=== PATIENT | male | born 1985 | race Caucasian/White ===

== ENCOUNTER 2016-09-11 11:42 | Emergency (ER) | payer OTHER ==
[~2016-09-11] VITALS: Ht 180.3 cm; Wt 78.0 kg
[~2016-09-11 11:42] MED LIST: MOTRIN100 MG PO; ULTRAM50 MG PO
[2016-09-11] MEDS ORDERED: PERCOCET 5/31 TABLET PO (15:01)
[2016-09-11 15:14] LABS: ADD MIUA? NO; BILIRUBIN NEGATIVE; BLOOD NEGATIVE; COLOR YELLOW ((YELLOW)); GLUCOSE (STRIP) NEGATIVE; KETONES NEGATIVE; LEUKOCYTES NEGATIVE; NITRITE NEGATIVE; PROTEIN (STRIP) NEGATIVE; SPECIFIC GRAVITY 1.015 (1.000-1.030); UCUL ADDED? NO
[2016-09-11 15:23] VITALS: BP 105/40
[2016-09-12 12:55] LABS: CHLAMYDIA TRACHOMATIS NEGATIVE; NEISSERIA GONORRHOEAE NEGATIVE
== END 2016-09-11 15:32 | disposition home or self-care (01) ==
LOC: EME 11:42
PROVIDERS: Physician Assistant Medical
DX: N50.89 Other specified disorders of the male genital organs (principal); N43.3 Hydrocele, unspecified; F17.220 Nicotine dependence, chewing tobacco, uncomplicated
CPT/HCPCS: 76870; 81003; 87491; 87591; 99281; 99284

== ENCOUNTER 2016-10-24 09:14 | Day surgery (SDC) | payer OTHER ==
[~2016-10-24] VITALS: Ht 177.8 cm; Wt 74.8 kg
[~2016-10-24 09:14] MED LIST changes: +PERCOCET 5/31 TABLET PO
[2016-10-24] MEDS ORDERED: ZOFRAN4 MG PO (09:55)
== END 2016-10-24 12:12 | disposition home or self-care (01) ==
LOC: CATH 09:14
DX: C62.90 Malignant neoplasm of unspecified testis, unspecified whether descended or undescended (principal); I87.8 Other specified disorders of veins; D58.0 Hereditary spherocytosis; F17.210 Nicotine dependence, cigarettes, uncomplicated; Z82.49 Family history of ischemic heart disease and other diseases of the circulatory system; Z83.3 Family history of diabetes mellitus
CPT/HCPCS: C1752; C1894; J0690; J1644; J2250; J2405; J3010; J7050; S0020

== ENCOUNTER 2016-12-26 18:09 | Inpatient (IN) | payer OTHER ==
[~2016-12-26] VITALS: Ht 177.8 cm; Wt 73.5 kg
[~2016-12-26 18:09] MED LIST changes: +COMPAZINE10 MG PO; +DEXAMETHASONE4 MG PO; +LORAZEPAM0.5 MG PO; +PEN-VEE K,VEET500 MG PO; +ZOFRAN4 MG PO
[2016-12-26 18:43] LABS: BASOPHIL COUNT 0.1 K/uL (0-0.1); EOSINOPHIL (%) 0.2 % (0-5); HEMATOCRIT 29.6 % (38.0-50.0); IMMATURE GRANULOCYTE (%) 0.5 % (0.0-0.7); INSTRUMENT ABS NEUTROPHIL CT 4.2 K/uL; LYMPHOCYTE COUNT 3.6 K/uL (1.0-2.8); MCH 33.6 PG (29.0-34.0); MCHC 36.8 G/DL (30.0-36.0); MCV 91.4 FL (86-99); MEAN PLAT.VOLUME 9.1 uM^3 (9.0-12.4); MONOCYTE (%) 1.2 % (3-12); MONOCYTE COUNT 0.1 K/uL (0-0.8); NEUTROPHIL (%) 52.4 % (45-76); NEUTROPHIL COUNT 4.2 K/uL (1.8-6.4); PLATELET COUNT 231 K/uL (156-360); RBC DIS.WIDTH-CV 18.1 % (11.8-14.6); RBC DIS.WIDTH-SD 58.4 % (39-53); RED BLOOD COUNT 3.24 M/uL (4.00-5.50)
[2016-12-26 18:51] LABS: CHLORIDE 99 mEq/L (99-109); SODIUM 137 mEq/L (136-147)
[2016-12-26 18:54] LABS: GLUCOSE 95 mg/dL (70-99)
[2016-12-26 18:55] LABS: ANION GAP 11 MEQ/L (2-14)
[2016-12-26 18:57] LABS: GFR ESTIMATE (CALCULATED) > 59 mL/min/
[2016-12-26 18:58] LABS: UREA NITROGEN (BUN) 15 mg/dL (9-23)
[2016-12-26 19:15] LABS: PROTHROMBIN TIME 10.7 SEC (10.2-12.9)
[2016-12-26 19:18] LABS: PTT 23.6 SEC (25-37)
[2016-12-26 19:28] LABS: TROP-I INTERPRETATION NEGATIVE; TROPONIN-I < 0.01 ng/mL (0.0-0.30)
[2016-12-26] MEDS ORDERED: PEPCID20 MG PO (21:47)
[2016-12-26] MEDS ORDERED: LOPERAMIDE2 M1 PO (21:48)
[2016-12-26] MEDS ORDERED: MIRALAX17 GM PO (21:48)
[2016-12-26] MEDS ORDERED: LIDOCAINE-PRIL1 EACH TP (21:48)
[2016-12-27 02:00] VITALS: BP 118/56
[2016-12-27 04:17] LABS: PTT 37.4 SEC (25-37)
[2016-12-27 07:43] VITALS: BP 132/60
[2016-12-27 09:51] LABS: INTER. NORMALIZED RATIO 1.1; PROTHROMBIN TIME 12.3 SEC (10.2-12.9)
[2016-12-27] MEDS ORDERED: XARELTO15 MG PO (12:21)
[2016-12-27] MEDS ORDERED: XARELTO20 MG PO (12:21)
== END 2016-12-27 15:16 | disposition home or self-care (01) | DRG 176 ==
LOC: EME 18:09 → RME 18:09 → EDOF 12-27 00:25 → ENRESERV 12-27 00:26 → 5EAST 12-27 01:43
PROVIDERS: Internal Medicine; Nurse Practitioner Family
DX: I26.99 Other pulmonary embolism without acute cor pulmonale (principal); C62.90 Malignant neoplasm of unspecified testis, unspecified whether descended or undescended; D64.9 Anemia, unspecified; Z92.21 Personal history of antineoplastic chemotherapy; Z90.81 Acquired absence of spleen
CPT/HCPCS: 36415; 71275; 80048; 80053; 81240 90; 82105 90; 83090 90; 83615; 84484; 85025; 85025 91; 85027; 85240 90; 85300 90; 85303 90; 85305 90; 85306 90; 85610; 85613 90; 85730; 85730 90; 86146 90; 86147 90; 93005; 93970; 99281; 99285; J2060; J2405; J7030; Q0164

== ENCOUNTER 2017-01-07 21:12 | Emergency (ER) | payer OTHER ==
[~2017-01-07] VITALS: Ht 180.3 cm; Wt 76.8 kg
[~2017-01-07 21:12] MED LIST changes: +LIDOCAINE-PRIL1 EACH TP; +LOPERAMIDE2 M1 PO; +MIRALAX17 GM PO; +PEPCID20 MG PO; +XARELTO15 MG PO; +XARELTO20 MG PO; +ZOFRAN ODT4 MG PO; -ZOFRAN4 MG PO
[2017-01-07 22:09] LABS: HEMATOCRIT 27.8 % (38.0-50.0); MCH 35.5 PG (29.0-34.0); MCHC 35.6 G/DL (30.0-36.0); MEAN PLAT.VOLUME 8.7 uM^3 (9.0-12.4); RBC DIS.WIDTH-CV 22.2 % (11.8-14.6); RBC DIS.WIDTH-SD 75.7 % (39-53); RED BLOOD COUNT 2.79 M/uL (4.00-5.50); WHITE BLOOD COUNT 7.3 K/uL (4.1-10.2)
[2017-01-07 22:12] LABS: CHLORIDE 107 mEq/L (99-109); POTASSIUM 4.2 mEq/L (3.7-5.4); SODIUM 141 mEq/L (136-147)
[2017-01-07 22:13] LABS: MCV 99.6 FL (86-99)
[2017-01-07 22:14] LABS: GLUCOSE 87 mg/dL (70-99); PLATELET COUNT 483 K/uL (156-360)
[2017-01-07 22:15] LABS: ANION GAP 9 MEQ/L (2-14)
[2017-01-07 22:18] LABS: GFR ESTIMATE (CALCULATED) > 59 mL/min/; UREA NITROGEN (BUN) 13 mg/dL (9-23)
[2017-01-08 00:20] VITALS: BP 129/83
[2017-01-08 00:27] LABS: ABS NEUTROPHIL COUNT 2.8; EOSINOPHIL ABS CT 0; INSTRUMENT ABS NEUTROPHIL CT 1.9 K/uL; NRBC (%) 4.5 /100 WBC (0-0)
[2017-01-08] MEDS ORDERED: OXYCODONE HCL5 MG PO (11:42)
[2017-01-08] MEDS ORDERED: DECADRON4 MG PO (11:43)
== END 2017-01-08 00:26 | disposition home or self-care (01) ==
LOC: EME 21:12
PROVIDERS: Emergency Medicine
DX: I26.99 Other pulmonary embolism without acute cor pulmonale (principal); C62.90 Malignant neoplasm of unspecified testis, unspecified whether descended or undescended; Z79.899 Other long term (current) drug therapy; Z86.718 Personal history of other venous thrombosis and embolism; Z79.01 Long term (current) use of anticoagulants
CPT/HCPCS: 71275; 80048; 85025; 99281; 99284

== ENCOUNTER 2017-01-08 07:07 | Observation (INO) | payer OTHER ==
[~2017-01-08] VITALS: Ht 180.3 cm; Wt 75.2 kg
[2017-01-08 07:59] LABS: EOSINOPHIL (%) 0.8 % (0-5); EOSINOPHIL COUNT 0.1 K/uL (0-0.3); HEMATOCRIT 29.2 % (38.0-50.0); IMMATURE GRANULOCYTE (%) 2.8 % (0.0-0.7); IMMATURE GRANULOCYTE COUNT 0.2 K/uL; LYMPHOCYTE COUNT 1.7 K/uL (1.0-2.8); MCH 35.5 PG (29.0-34.0); MCHC 35.3 G/DL (30.0-36.0); MCV 100.7 FL (86-99); MEAN PLAT.VOLUME 8.5 uM^3 (9.0-12.4); MONOCYTE (%) 33.2 % (3-12); MONOCYTE COUNT 2.5 K/uL (0-0.8); NEUTROPHIL (%) 40.2 % (45-76); NRBC (%) 6.3 /100 WBC (0-0); PLATELET COUNT 455 K/uL (156-360); RBC DIS.WIDTH-CV 22.6 % (11.8-14.6); RBC DIS.WIDTH-SD 78.8 % (39-53); WHITE BLOOD COUNT 7.5 K/uL (4.1-10.2)
[2017-01-08 08:14] LABS: CHLORIDE 104 mEq/L (99-109); SODIUM 134 mEq/L (136-147)
[2017-01-08 08:16] LABS: GLUCOSE 97 mg/dL (70-99)
[2017-01-08 08:18] LABS: ANION GAP 5 MEQ/L (2-14); TOTAL BILIRUBIN 0.3 mg/dL (0.0-1.0)
[2017-01-08 08:20] LABS: ALKALINE PHOSPHATASE 66 IU/L (3-129); GFR ESTIMATE (CALCULATED) > 59 mL/min/
[2017-01-08 08:21] LABS: UREA NITROGEN (BUN) 13 mg/dL (9-23)
[2017-01-08 08:25] LABS: TROP-I INTERPRETATION NEGATIVE; TROPONIN-I < 0.01 ng/mL (0.0-0.30)
[2017-01-08] MEDS ORDERED: OXYCODONE HCL5 MG PO (11:42)
[2017-01-08] MEDS ORDERED: DECADRON4 MG PO (11:43)
[2017-01-08 12:26] VITALS: BP 143/80
[2017-01-08 14:34] LABS: TROP-I INTERPRETATION NEGATIVE; TROPONIN-I < 0.01 ng/mL (0.0-0.30)
[2017-01-08 16:16] VITALS: BP 127/73
[2017-01-08 19:33] VITALS: BP 136/76
[2017-01-08 20:24] LABS: TROP-I INTERPRETATION NEGATIVE; TROPONIN-I < 0.01 ng/mL (0.0-0.30)
[2017-01-08 23:36] VITALS: BP 109/82
[2017-01-09 04:34] VITALS: BP 105/53
[2017-01-09 08:47] VITALS: BP 122/67
[2017-01-09 15:33] VITALS: BP 127/61
[2017-01-09 23:38] VITALS: BP 127/61
[2017-01-10 08:01] LABS: HEMATOCRIT 28.9 % (38.0-50.0); MCH 36.6 PG (29.0-34.0); MCHC 35.3 G/DL (30.0-36.0); MCV 103.6 FL (86-99); MEAN PLAT.VOLUME 8.8 uM^3 (9.0-12.4); NRBC (%) 2.8 /100 WBC (0-0); PLATELET COUNT 466 K/uL (156-360); RBC DIS.WIDTH-CV 22.5 % (11.8-14.6); RBC DIS.WIDTH-SD 82.8 % (39-53); RED BLOOD COUNT 2.79 M/uL (4.00-5.50); WHITE BLOOD COUNT 11.2 K/uL (4.1-10.2)
[2017-01-10 08:41] VITALS: BP 132/69
[2017-01-10 08:56] LABS: INTER. NORMALIZED RATIO 1.4; PROTHROMBIN TIME 15.3 SEC (10.2-12.9)
[2017-01-10 08:59] LABS: PTT 30.3 SEC (25-37)
[2017-01-10] MEDS ORDERED: OXYCODONE HCL10 MG PO (10:45)
[2017-01-10] MEDS ORDERED: PREDNISONE20 MG PO (11:18)
== END 2017-01-10 13:57 | disposition home or self-care (01) ==
LOC: EME 07:07 → 5SOUTH 10:30 → EDOF 10:30 → ENRESERV 10:43 → 5SOUTH 12:22
PROVIDERS: Emergency Medicine; Internal Medicine; Nurse Practitioner Adult Health
DX: J18.9 Pneumonia, unspecified organism (principal); I26.99 Other pulmonary embolism without acute cor pulmonale; D68.51 Activated protein C resistance; Z86.718 Personal history of other venous thrombosis and embolism; Z86.711 Personal history of pulmonary embolism; Z79.01 Long term (current) use of anticoagulants; D58.0 Hereditary spherocytosis; C62.92 Malignant neoplasm of left testis, unspecified whether descended or undescended; Z92.21 Personal history of antineoplastic chemotherapy; R11.2 Nausea with vomiting, unspecified; D64.9 Anemia, unspecified; Z90.79 Acquired absence of other genital organ(s); Z90.81 Acquired absence of spleen; F17.210 Nicotine dependence, cigarettes, uncomplicated
CPT/HCPCS: 71010; 71275; 80053; 84484; 85025 91; 85027; 85610; 85730; 93005; 94010; 94640; 94640 76; 99281; 99285; G0378; J0456; J0696; J1170; J1650; J2270; J2405; J2765; J2930; J7030; J7050; J7512

== ENCOUNTER → 2017-01-23 | Outpatient (CLI) | payer OTHER ==
[~2017-01-23] MED LIST changes: +DECADRON4 MG PO; +OXYCODONE HCL10 MG PO; +OXYCODONE HCL5 MG PO; +PREDNISONE20 MG PO
== END | disposition home or self-care (01) ==
LOC: AMB 11:07
PROC: 02PYX3Z Removal of Infusion Device from Great Vessel, External Approach (ICD-10-PCS; principal; 2017-01-23)
PROC: 0JPT3WZ Removal of Totally Implantable Vascular Access Device from Trunk Subcutaneous Tissue and Fascia, Percutaneous Approach (ICD-10-PCS; principal; 2017-01-23)
DX: Z45.2 Encounter for adjustment and management of vascular access device (principal); I87.8 Other specified disorders of veins; Z92.21 Personal history of antineoplastic chemotherapy

== ENCOUNTER 2017-05-02 16:06 | Emergency (ER) | payer OTHER ==
[~2017-05-02] VITALS: Ht 180.3 cm; Wt 81.8 kg
[2017-05-02 19:49] LABS: BASOPHIL (%) 0.4 % (0-1); EOSINOPHIL (%) 1.2 % (0-5); EOSINOPHIL COUNT 0.1 K/uL (0-0.3); HEMATOCRIT 42.2 % (38.0-50.0); HEMOGLOBIN 15.3 G/DL (12.5-16.6); IMMATURE GRANULOCYTE (%) 0.5 % (0.0-0.7); LYMPHOCYTE (%) 27.8 % (15-42); LYMPHOCYTE COUNT 2.7 K/uL (1.0-2.8); MCHC 36.3 G/DL (30.0-36.0); MCV 91.1 FL (86-99); MONOCYTE COUNT 2.3 K/uL (0-0.8); NEUTROPHIL (%) 46.1 % (45-76); NEUTROPHIL COUNT 4.5 K/uL (1.8-6.4); PLATELET COUNT 341 K/uL (156-360); RBC DIS.WIDTH-CV 12.8 % (11.8-14.6); RBC DIS.WIDTH-SD 41.8 % (39-53); RED BLOOD COUNT 4.63 M/uL (4.00-5.50); WHITE BLOOD COUNT 9.8 K/uL (4.1-10.2)
[2017-05-02 19:59] LABS: ALBUMIN 3.8 g/dL (3.2-4.8); CHLORIDE 99 mEq/L (99-109); POTASSIUM 3.8 mEq/L (3.7-5.4); SODIUM 134 mEq/L (136-147)
[2017-05-02 20:01] LABS: GLUCOSE 100 mg/dL (70-99); TOTAL PROTEIN 7.2 g/dL (6.4-8.3)
[2017-05-02 20:03] LABS: TOTAL BILIRUBIN 0.4 mg/dL (0.0-1.0)
[2017-05-02 20:05] LABS: ALKALINE PHOSPHATASE 68 IU/L (3-129); GFR ESTIMATE (CALCULATED) > 59 mL/min/ (58.99-99999)
[2017-05-02 20:06] LABS: AST (GOT) 25 IU/L (2-34); UREA NITROGEN (BUN) 12 mg/dL (9-23)
[2017-05-02 20:07] LABS: DIRECT BILIRUBIN 0.2 mg/dL (0.0-0.3)
[2017-05-02 20:08] LABS: ALT (GPT) 51 IU/L (3-49); LIPASE 41 U/L (1.0-51.0)
[2017-05-02] MEDS ORDERED: TAMIFLU75 MG PO (22:19)
[2017-05-02] MEDS ORDERED: MOTRIN800 MG PO (22:19)
[2017-05-02] MEDS ORDERED: TESSALON PERLE100 MG PO (22:21)
[2017-05-02 23:03] LABS: APPEARANCE CLEAR ((CLEAR)); BILIRUBIN NEGATIVE; BLOOD NEGATIVE; COLOR YELLOW ((YELLOW)); GLUCOSE (STRIP) NEGATIVE; KETONES NEGATIVE; LEUKOCYTES NEGATIVE; NITRITE NEGATIVE; PROTEIN (STRIP) 30; UROBILINOGEN 0.2 MG/DL (0.2-1.0)
[2017-05-02 23:30] LABS: SPECIFIC GRAVITY 1.048 (1.000-1.030)
[2017-05-03 00:07] VITALS: BP 120/82
== END 2017-05-03 00:09 | disposition home or self-care (01) ==
LOC: EME 16:06
PROVIDERS: Physician Assistant
DX: J10.1 Influenza due to other identified influenza virus with other respiratory manifestations (principal); R59.0 Localized enlarged lymph nodes; E86.0 Dehydration; Z85.47 Personal history of malignant neoplasm of testis; M54.5 Low back pain; Z92.21 Personal history of antineoplastic chemotherapy; Z86.718 Personal history of other venous thrombosis and embolism; Z86.711 Personal history of pulmonary embolism; Z90.49 Acquired absence of other specified parts of digestive tract; Z88.5 Allergy status to narcotic agent
CPT/HCPCS: 70140; 71020; 72158; 80048; 80076; 81003; 83605; 83690; 85025; 87040; 87502; 99281; 99285